=== PATIENT | female | born 1980 | race Hispanic/Latino ===

== ENCOUNTER 2017-02-05 11:28 | Inpatient (IN) | payer SELFPAY ==
[2017-02-05 12:21] LABS: Basophils % (Auto) 0.7 % (0.0-1.8); Hematocrit 43.6 % (30.3-42.9); Hemoglobin 14.5 gm/dl (10.1-14.3); Mean Corpuscular HGB Conc 33 % (30-34); Mean Corpuscular Hemoglobin 31 pg (28-32); Mean Corpuscular Volume 94 fl (79-97); Platelet Count 375 K/mm3 (140-440); Red Blood Count 4.66 M/mm3 (3.65-5.03); Red Cell Distribution Width 12.9 % (13.2-15.2); White Blood Count 7.7 K/mm3 (4.5-11.0)
[2017-02-05 12:28] LABS: Anion Gap 21 mmol/L; Blood Urea Nitrogen 7 mg/dL (7-17); Calcium 9.4 mg/dL (8.4-10.2); Carbon Dioxide 24 mmol/L (22-30); Chloride 100.2 mmol/L (98-107); Glucose 102 mg/dL (65-100); Potassium 3.9 mmol/L (3.6-5.0); Sodium 141 mmol/L (137-145)
[2017-02-05] MEDS ORDERED: NITRO-BID 2% TP ONE (17:15)
[2017-02-05] MEDS ORDERED: ASPIRIN PO ONE (17:15)
--- NOTE | 2017-02-05 17:20 | Emergency Department Report ---
HPI - General Chief Complaint: Chest Pain Time Seen by Provider: 02/05/17 17:08 - HPI HPI: Room 38 The patient is a 36-year-old female presenting with a chief complaint of chest pain. Patient states last night she developed substernal chest pressure that has been intermittent. The patient states pressure sometimes associated with shortness of breath as well as diaphoresis. Patient denies nausea or vomiting. The patient currently did not does not have chest pain but states she did have pressure approximately 10 minutes ago. Patient states she's never had a stress test or cardiac catheterization Location: Chest Duration: Intermittent Since yesterday Quality: Pressure Severity: Currently 0/10 Modifying factors: [see above] Context: [see above] Mode of transportation: Unknown ED Past Medical Hx - Past Medical History Hx Headaches / Migraines: Yes Hx Seizures: Yes (anxiety induced) Hx Psychiatric Treatment: Yes (anxiety/depression/OCD) Additional medical history: hypothyroidism. TACHYCARDIA - Surgical History Additional Surgical History: - Family History Family history: no significant - Social History Smoking Status: Never Smoker Substance Use Type: None (denies illicit drug use), Alcohol (occasional) - Medications Home Medications: Home Medications Medication Instructions Recorded Confirmed Last Taken Type Bupropion HCl [Wellbutrin XL] 300 mg PO DAILY 09/08/14 09/08/14 09/08/14 History Levothyroxine [Synthroid] 25 mcg PO DAILY 09/08/14 09/08/14 09/08/14 History Temazepam [Restoril] 30 mg PO QHS PRN 09/08/14 09/08/14 09/07/14 History Venlafaxine Xr [Effexor XR] 225 mg PO DAILY 09/08/14 09/08/14 09/08/14 History busPIRone [Buspar] 20 mg PO TID 09/08/14 09/08/14 09/08/14 History clonazePAM [KlonoPIN] 2 mg PO DAILY 09/08/14 09/08/14 09/08/14 History ED Review of Systems ROS: Stated complaint: CHEST PAIN Other details as noted in HPI Comment: All other systems reviewed and negative Constitutional: diaphoresis Eyes: denies: eye pain, eye discharge, vision change ENT: denies: ear pain, throat pain Respiratory: shortness of breath Cardiovascular: chest pain, palpitations Endocrine: no symptoms reported Gastrointestinal: denies: nausea, vomiting Genitourinary: denies: urgency, dysuria, discharge Musculoskeletal: denies: back pain, joint swelling, arthralgia Skin: denies: rash, lesions Neurological: denies: headache, weakness, paresthesias Psychiatric: anxiety (?) Hematological/Lymphatic: denies: easy bleeding, easy bruising Physical Exam - Physical Exam Vital Signs: Vital Signs 02/05/17 02/05/17 11:35 15:57 Temperature 98.2 F Pulse Rate 90 95 H Respiratory 17 16 Rate Blood Pressure 125/82 Blood Pressure 137/66 [Right] O2 Sat by Pulse 100 100 Oximetry Physical Exam: GENERAL: The patient is well-developed well-nourished female lying on stretcher not appearing to be in acute distress. [] HEENT: Normocephalic. Atraumatic. Extraocular motions are intact. Patient has moist mucous membranes. NECK: Supple. Trachea midline CHEST/LUNGS: Clear to auscultation. There is no respiratory distress noted. HEART/CARDIOVASCULAR: Regular. There is no tachycardia. There is no gallop rub or murmur. ABDOMEN: Abdomen is soft, nontender. Patient has normal bowel sounds. There is no abdominal distention. SKIN: There is no rash. There is no edema. There is no diaphoresis. NEURO: The patient is awake, alert, and oriented. The patient is cooperative. The patient has normal speech. MUSCULOSKELETAL: There is no evidence of acute injury. ED Course Vital Signs 02/05/17 02/05/17 11:35 15:57 Temperature 98.2 F Pulse Rate 90 95 H Respiratory 17 16 Rate Blood Pressure 125/82 Blood Pressure 137/66 [Right] O2 Sat by Pulse 100 100 Oximetry ED Medical Decision Making - Lab Data Result diagrams: 02/05/17 11:48 02/05/17 11:48 Laboratory Tests 02/05/17 02/05/17 02/05/17 11:48 11:48 14:30 WBC 7.7 RBC 4.66 Hgb 14.5 H Hct 43.6 H MCV 94 MCH 31 MCHC 33 RDW 12.9 L Plt Count 375 Lymph % (Auto) 26.9 [place] % (Auto) 9.8 H Eos % (Auto) 0.0 Baso % (Auto) 0.7 Lymph # 2.1 [place] # 0.8 Eos # 0.0 Baso # 0.1 Seg Neutrophils % 62.6 Seg Neutrophils # 4.8 Sodium 141 Potassium 3.9 Chloride 100.2 Carbon Dioxide 24 Anion Gap 21 BUN 7 Creatinine 0.7 Estimated GFR > 60 BUN/Creatinine Ratio 10.00 Glucose 102 H Calcium 9.4 Troponin T < 0.010 < 0.010 - EKG Data -: EKG Interpreted by Me EKG shows normal: sinus rhythm Rate: normal - EKG Data When compared to previous EKG there are: changes noted Interpretation: nonspecific ST-T wave stevie (T-wave inversion in lead V2) - Radiology Data Radiology results: image reviewed (chest x-ray) interpreted by me: Chest x-ray-no focal infiltrates, no pneumothorax - Differential Diagnosis ACS, anxiety, pericarditis, GERD Critical care attestation.: If time is entered above; I have spent that time in minutes in the direct care of this critically ill patient, excluding procedure time. ED Disposition Clinical Impression: Chest pain Disposition: OP ADMITTED IP TO THIS HOSP Is pt being admited?: Yes Does the pt Need Aspirin: Yes Condition: Fair Instructions: Chest Pain (ED) Referrals: PRIMARY CARE, [Primary Care Provider] - 3-5 Days Time of Disposition: 18:01 (hospitalist paged)
[2017-02-05] MEDS ORDERED: ZOFRAN IV PRN (17:21)
[2017-02-05] MEDS ORDERED: MORPHINE IV PRN (17:21)
[2017-02-05] MEDS ORDERED: SODIUM CHLORIDE FLUSH SYRINGE 10 ML IV PRN (19:15)
[2017-02-05] MEDS ORDERED: TYLENOL PO PRN (19:18)
--- NOTE | 2017-02-05 19:21 | History and Physical Report ---
History of Present Illness Date of examination: 02/05/17 Chief complaint: chest pain History of present illness: 36-year-old female presented to the emergency department complaining of left-sided chest discomfort that started yesterday. When started it was 10 out of 10 now 3 out of 10, feels as if somebody sitting on her chest, worsened with movement, getting better by sitting still, no radiation. Admitted for diaphoresis but denied shortness of breath. Patient has history of reflux, tachycardia and was on hold monitor which only shows sinus tachycardia, anxiety disorder, depression, migraine. REVIEW OF SYSTEMS: GENERAL: no weight change, no fatigue, no fever HEAD: no head ache EYES: no blurry vision, no acute visual loss EARS: no hearing loss, no discharge, no earache NOSE: no stuffiness, no sneezing, no discharge MOUTH, THROAT AND NECK: no bleeding gums, no sore throat, no swollen neck CARDIAC: +palpitations, no dyspnea on exertion, no orthopnea, no PND, no edema, +chest pain RESPIRATORY: no shortness of breath, no wheeze, no cough, no sputum, no hemoptysis, no asthma GI: no decreased appetite, no nausea, no vomiting, no dysphagia, no diarrhea, no constipation, no abdominal pain URINARY: no change in frequency, no urgency, no polyuria, no hematuria, no incontinence MUSCULOSKELETAL: no muscle weakness, no pain, no joint stiffness NEUROLOGIC: no loss of sensation/numbness, no tingling, no tremors, no weakness/ paralysis HEMATOLOGIC: no anemia, no easy bruising SKIN: no rashes ENDOCRINE: no heat/cold intolerance, no polyuria, no polydipsia, no thyroid problems, no diabetes PSYCHIATRIC: +anxiety, +depression, no suicidal ideations Past History Past Medical History: GERD, migraines, seizures Past Surgical History: Social history: full code. denies: smoking, alcohol abuse, prescription drug abuse, IV drug use Family history: no significant family history Medications and Allergies Allergies Allergy/AdvReac Type Severity Reaction Status Date / Time Penicillins Allergy Hives Verified 02/05/17 11:38 sulfamethoxazole Allergy Seizure Verified 02/05/17 11:38 [From Bactrim] trimethoprim [From Bactrim] Allergy Seizure Verified 02/05/17 11:38 Home Medications Medication Instructions Recorded Confirmed Last Taken Type clonazePAM [KlonoPIN] 2 mg PO BID 09/08/14 02/05/17 02/05/17 History Ibuprofen [Motrin 200 MG tab] 200 mg PO PRN 02/05/17 02/05/17 Unknown History Levothyroxine [Synthroid] 50 mcg PO BID 02/05/17 02/05/17 02/05/17 History Paroxetine HCl [Paxil] 60 mg PO QDAY 02/05/17 02/05/17 Unknown History Zolpidem [Ambien] 5 mg PO QHS 02/05/17 02/05/17 Unknown History Active Meds: Active Medications Aspirin (Baby Aspirin) 81 mg PO QDAY ONI Clonazepam (Klonopin) 2 mg PO BID ONI Enoxaparin Sodium (Lovenox) 40 mg SUB-Q QDAY ONI Famotidine (Pepcid) 20 mg PO BID ONI Levothyroxine Sodium (Synthroid) 50 mcg PO BID ONI Miscellaneous Medication (Paroxetine Hcl [Paxil]) 60 mg PO QDAY [facility] Morphine Sulfate (Morphine) 6 mg IV ONCE PRN PRN Reason: Pain Ondansetron HCl (Zofran) 8 mg IV ONCE PRN PRN Reason: Nausea Sodium Chloride (Sodium Chloride Flush Syringe 10 Ml) 10 ml IV PRN PRN PRN Reason: LINE FLUSH Zolpidem Tartrate (Ambien) 5 mg PO QHS [facility] Exam - Physical Exam Narrative exam: Not in cardiopulmonary distress. The patient appeared well nourished and normally developed. Vital signs as documented. Head exam is unremarkable. No scleral icterus . Neck is without jugular venous distension, thyromegaly, or carotid bruits. Lungs are clear to auscultation. Cardiac exam reveals regular rate and Rhythm. First and second heart sounds normal. No murmurs, rubs or gallops. Abdominal exam reveals normal bowel sounds, no masses, no organomegaly and no aortic enlargement. Extremities are nonedematous and both femoral and pedal pulses are normal. [employer]: Alert and oriented 3. No focal weakness. - Constitutional Vitals: Temp Pulse Resp BP Pulse Ox 98.2 F 82 16 133/66 100 02/05/17 11:35 02/05/17 17:24 02/05/17 15:57 02/05/17 17:24 02/05/17 15:57 Results - Labs CBC & Chem 7: 02/05/17 11:48 02/05/17 11:48 Labs: Laboratory Last Values WBC 7.7 K/mm3 (4.5-11.0) 02/05/17 11:48 RBC 4.66 M/mm3 (3.65-5.03) 02/05/17 11:48 Hgb 14.5 gm/dl (10.1-14.3) H 02/05/17 11:48 Hct 43.6 % (30.3-42.9) H 02/05/17 11:48 MCV 94 fl (79-97) 02/05/17 11:48 MCH 31 pg (28-32) 02/05/17 11:48 MCHC 33 % (30-34) 02/05/17 11:48 RDW 12.9 % (13.2-15.2) L 02/05/17 11:48 Plt Count 375 K/mm3 (140-440) 02/05/17 11:48 Lymph % (Auto) 26.9 % (13.4-35.0) 02/05/17 11:48 [place] % (Auto) 9.8 % (0.0-7.3) H 02/05/17 11:48 Eos % (Auto) 0.0 % (0.0-4.3) 02/05/17 11:48 Baso % (Auto) 0.7 % (0.0-1.8) 02/05/17 11:48 Lymph # 2.1 K/mm3 (1.2-5.4) 02/05/17 11:48 [place] # 0.8 K/mm3 (0.0-0.8) 02/05/17 11:48 Eos # 0.0 K/mm3 (0.0-0.4) 02/05/17 11:48 Baso # 0.1 K/mm3 (0.0-0.1) 02/05/17 11:48 Seg Neutrophils % 62.6 % (40.0-70.0) 02/05/17 11:48 Seg Neutrophils # 4.8 K/mm3 (1.8-7.7) 02/05/17 11:48 Sodium 141 mmol/L (137-145) 02/05/17 11:48 Potassium 3.9 mmol/L (3.6-5.0) 02/05/17 11:48 Chloride 100.2 mmol/L (98-107) 02/05/17 11:48 Carbon Dioxide 24 mmol/L (22-30) 02/05/17 11:48 Anion Gap 21 mmol/L 02/05/17 11:48 BUN 7 mg/dL (7-17) 02/05/17 11:48 Creatinine 0.7 mg/dL (0.7-1.2) 02/05/17 11:48 Estimated GFR > 60 ml/min 02/05/17 11:48 BUN/Creatinine Ratio 10.00 % 02/05/17 11:48 Glucose 102 mg/dL (65-100) H 02/05/17 11:48 Calcium 9.4 mg/dL (8.4-10.2) 02/05/17 11:48 Troponin T < 0.010 ng/mL (0.00-0.029) 02/05/17 18:40 - Imaging and Cardiology EKG: image reviewed (sinus tach) Assessment and Plan Assessment and plan: Chest pain Anxiety depression Hypothyroidism GERD - Admit to telemetry floor and managed according to chest pain protocol - Nitropatch - Aspirin - We'll resume her home medications - We'll have stress test tomorrow DVT prophylaxis - Lovenox Disposition - Admit to telemetry floor Advance Directives: Yes VTE prophylaxis?: Chemical Plan of care discussed with patient/family: Yes
[2017-02-05] MEDS: SYNTHROID PO SCH (23:20)
[2017-02-05] MEDS: PEPCID PO SCH (23:21)
[2017-02-05] MEDS: AMBIEN PO SCH ×2 (23:21→23:22)
[2017-02-05 23:45] LABS: Creatine Kinase 36 units/L (30-135)
[2017-02-05 23:50] LABS: Creatine Kinase MB < 1.0 ng/mL (0.0-4.0)
[2017-02-06 02:44] LABS: Creatine Kinase 34 units/L (30-135)
[2017-02-06 02:49] LABS: Creatine Kinase MB < 1.0 ng/mL (0.0-4.0)
--- NOTE | 2017-02-06 07:33 | XRay Report ---
Single view chest: History: Chest pain. Findings Normal cardiomediastinal silhouette. Trachea is midline. No consolidation, pneumothorax or pleural effusion. Impression: No acute cardiopulmonary findings.
--- NOTE | 2017-02-06 08:33 | Discharge Summary ---
Providers - Providers Date of Admission: 02/05/17 19:14 Date of discharge: 02/06/17 Attending physician: DAPHNE BROWN MD 02/05/17 Consult to Cardiac Rehabilitation [CONS] Routine Reason For Exam: Phase I Primary care physician: CARE NAVIGATOR Hospitalization Reason for admission: chest pain Condition: Stable Hospital course: 36-year-old female presented to the emergency department complaining of left-sided chest discomfort that started yesterday. When started it was 10 out of 10 now 3 out of 10, feels as if somebody sitting on her chest, worsened with movement, getting better by sitting still, no radiation. Admitted for diaphoresis but denied shortness of breath. Patient has history of reflux, tachycardia and was on hold monitor which only shows sinus tachycardia, anxiety disorder, depression, migraine. Impression persisted to have a stress test that was unremarkable. The chest pain resolved while she was in house. She is clinically stable at this time to discharge she is to follow with her primary care physician. Discharge diagnosis Chest pain-costochondritis Anxiety depression Hypothyroidism GERD Disposition: DISCHARGED TO HOME OR SELFCARE Time spent for discharge: 35 mins Core Measure Documentation - Palliative Care Palliative Care/ Comfort Measures: Not Applicable - Core Measures Any of the following diagnoses?: none - VTE Discharge Requirements Deep Vein Thrombosis/Pulmonary Embolism Present on Admission: No Exam - Physical Exam Narrative exam: VITAL SIGNS: Reviewed. GENERAL: The patient appeared well nourished and normally developed. Vital signs as documented. HEAD: No signs of head trauma. EYES: Pupils are equal. Extraocular motions intact. EARS: Hearing grossly intact. MOUTH: Oropharynx is normal. NECK: No adenopathy, no JVD. CHEST: Chest with clear breath sounds bilaterally. No wheezes, rales, or rhonchi. CARDIAC: Regular rate and rhythm. S1 and S2, without murmurs, gallops, or rubs. VASCULAR: No Edema. Peripheral pulses normal and equal in all extremities. ABDOMEN: Soft, without detectable tenderness. No sign of distention. No rebound or guarding, and no masses palpated. Bowel Sounds normal. MUSCULOSKELETAL: Good range of motion of all major joints. Extremities without clubbing, cyanosis or edema. NEUROLOGIC EXAM: Alert and oriented x 3. No focal sensory or strength deficits. Speech normal. Follows commands. PSYCHIATRIC: Mood normal. SKIN: No rash or lesions. - Constitutional Vitals: Temp Pulse Resp BP Pulse Ox 98.8 F 118 H 18 122/65 100 02/06/17 05:11 02/06/17 05:11 02/06/17 05:11 02/06/17 05:11 02/06/17 05:11 Plan Activity: advance as tolerated, fall precautions Diet: low fat Special Instructions: smoking cessation Follow up with: PRIMARY CARE, [Primary Care Provider] - 3-5 Days
--- NOTE | 2017-02-06 08:42 | Admit Criteria Form ---
Admission Criteria Documentation: CARDIOLOGY GRG Clinical Indications for Admission to Inpatient Care ( Place 'X' for any and all applicable criteria): Hospital admission is needed for appropriate care of the patient because of ANY ONE of the following (1): [ ] I. Hemodynamic instability as indicated by ALL of the following (1)(2)(3) (4)(5) [ ]a) Vital signs or other findings not as expected for chronic patient condition or baseline [ ]b) Instability indicated by ANY ONE of the following: [ ]i) Hypotension [ ]ii) Symptomatic Tachycardia unresponsive to treatment ( e.g., analgesia, fluids, sedation as indicated) [ ]iii) Inadequate perfusion indicated by ANY ONE of the following: [ ] 1) Lactic acidosis (> 2 mmol/L) [ ] 2) New abnormal capillary refill (> 3 seconds) [ ] 3) Reduced urine output [ ] 4) New altered mental status [ ]iv) Orthostatic vital sign changes unresponsive to treatment (e.g., fluids) [ ]v) IV inotropic or vasopressor medication required to maintain adequate blood pressure or perfusion [ ] II. Severe heart failure as indicated by ANY ONE of the following(17)(18) [ ]a) Respiratory distress [ ]b) Hypotension [ ]c) Anasarca (refractory to outpatient therapy) [ ]d) Cardiac arrhythmias of immediate concern [ ]e) Myocardial ischemia [ ] III. Cardiac arrhythmias or findings of immediate concern indicated by ANY ONE of the following (19)(20): [ ] a) Heart rhythms that are inherently dangerous or unstable indicated by ANY ONE of the following (21)(22)(23): [ ] i) Resuscitated ventricular fibrillation or cardiac arrest [ ] ii) Ventricular escape rhythm [ ] iii) Sustained ventricular tachycardia (30 seconds or more of ventricular rhythm at greater than 100 beats per minute) [ ] iv) Nonsustained ventricular tachycardia and ANY ONE of the following: [ ] 1) Suspected cardiac ischemia as cause or consequence of ventricular tachycardia [ ] 2) In setting of acute myocarditis [ ] b) Unstable cardiac conduction defects indicated by ANY ONE of the following(23)(24)(25) [ ] i) Type II second-degree atrioventricular block [ ]ii) Third-degree atrioventricular block [ ]iii) New-onset left bundle branch block with suspected myocardial ischemia [ ]c) Any heart rhythm and ANY ONE of the following (21)(22)(26)(27) (28) [ ] i) Continuous long-term ECG monitoring needed (e.g., initiation of drug requiring monitoring for more than 24 hours) [ ] ii) Patient has automatic implanted cardioverter defibrillator that is repeatedly firing, malfunctioning, or in need of immediate adjustment of settings beyond the scope of ambulatory or observation care [ ]d) Heart rhythms of concern due to ANY ONE of the following: [ ] i) Hypotension [ ] ii) Respiratory distress [ ] iii) Association with other significant symptoms (e.g., bradycardia with syncope or ongoing dizziness, supraventricular tachycardia with chest pain (14)(15)(17) [ ] IV. Monitoring for cardiac contusion beyond the scope of observation care needed [A](30)(31)(32) [ ] V. Surgical or device complication (e.g., valve replacement complication , pacemaker dysfunction) (35)(41)(44)(45)(46) [ ] . Inpatient palliative care needed. [B](49) Also use Inpatient Palliative Care Criteria [ ] VII. Nonbacterial thrombotic (marantic) endocarditis (36)(43)(47)(48) [X] VIII. Cardiology condition, symptom, or finding for which emergency and observation care has failed or are not considered appropriate. [ ] IX. Acute valvular disease requiring inpatient as indicated by ANY ONE of the following (41) [ ]a) Acute valvular regurgitation (42) [ ]b) Noninfectious valvulitis (43) [ ]c) Obstructive valve thrombosis [ ]d) Paravalvular leak [ ]e) Other significant valvular disorder remaining after emergency or observation level of care (as appropriate) [ ]X. Pericardial disease requiring inpatient treatment as indicated by ANY ONE of the following (33)(34)(35)(36)(37) [ ]a) Suspected tamponade (38)(39)(40) [ ]b) Hemopericardium [ ]c) Other significant pericardial disorder remaining after emergency or observation level of care (as appropriate) [ ] XI. Cardiac ischemia beyond scope of emergency and observation care. [ ] XII. Hypertension requiring inpatient treatment as indicated by ANY ONE of the following (6)(7)(8) [ ]a) SBP greater than 220 mm Hg or DBP greater than 120 mmHg despite treatment [ ]b) SBP greater than 140 mm Hg or DBP greater than 100 mm Hg with evidence of acute end organ damage as indicated by ANY ONE of the following [ ] i) Altered mental status [ ] ii) Acute renal failure as indicated by new onset of ANY ONE of the following (9)(10)(11)(12)(13) [ ]1) 3-fold rise in serum creatinine from baseline [ ]2) Serum creatinine greater than 4 mg/dL ( 354 micromoles/L) with acute rise greater than 0.5 mg/dL (44.2 micromoles/L) [ ]3) Reduction of more than 75% in estimated glomerular filtration rate from baseline [ ]4) Estimated glomerular filtration rate less than 35 mL/min/1.73m2 (0.59 mL/sec/1.73m2) in child up to 18 years of age [ ]5) Cessation of urine output indicated by ALL of the following [ ]A. Adequate volume status [ ]B. Inadequate urine output as indicated by ANY ONE of the following [ ]a. Urine output less than 0.3 mL/kg/hr for 24 hours [ ]b. Anuria (urine output less than 0.1 mL/kg/hr) for 12 hours [ ] iii) Aortic dissection [ ] iv) Myocardial Ischemia [ ] v) Left ventricular heart failure [ ]vi) Retinal Hemorrhage [ ]vii) Other significant finding [ ]c) Hypertension in child requiring inpatient treatment as indicated by ALL of the following(14)(15)(16) [ ] i) Outpatient treatment not effective, not available, or not appropriate [ ]ii) SBP or DBP greater than 95th percentile for age [ ]iii) Evidence of acute end organ damage as indicated by ANY ONE of the following [ ]1) Altered mental status [ ]2) Acute renal failure as indicated by new onset of ANY ONE of the following(9)(10)(11)(12)(13) [ ]A. 3-fold rise in serum creatinine from baseline [ ]B. Serum creatinine greater than 4 mg/dL (354 micromoles/L) with acute rise greater than 0.5 mg/dL (44.2 micromoles/L) [ ]C. Reduction of more than 75% in estimated glomerular filtration rate from baseline [ ]D. Estimated glomerular filtration rate less than 35 mL/min/1.73m2 (0.59 mL/sec/1.73m2) in child up to 18 years of age [ ]E. Cessation of urine output indicated by ALL of the following [ ]a. Adequate volume status [ ]b. Inadequate urine output as indicated by ANY ONE of the following [ ]i) Urine output less than 0.3 mL/kg/hr for 24 hours [ ]ii) Anuria ( urine output less than 0.1 mL/kg/hr) for 12 hours [ ]3) Severe headache [ ]4) Visual disturbance [ ]5) Retinal hemorrhage [ ]6) Other significant finding [ ]XIII. Complications of transplanted heart indicated by ANY ONE of the following(61): [ ]a) Acute graft rejection requiring inpatient management (eg, intravenous immunosuppression)(62)(63) [ ]b) Acute graft heart failure indicated by ANY ONE of the following(64): [ ]i) Hemodynamic instability [ ]ii) Cardiac arrhythmias of immediate concern [ ]iii) Pulmonary edema that is very severe (eg, mechanical ventilation needed, imminent or likely, need for 100% oxygen to keep oxygen saturation above 90%) [ ]iv) Pulmonary edema that is persistent as indicated by ALL of the following: [ ]1) New need for oxygen therapy to keep oxygen saturation above 90% (or increased FiO2 need from baseline) [ ]2) Has not improved sufficiently with emergency department or observation care IV diuretics or other heart failure treatments[E] [ ]v) Altered mental status that is severe or persistent [ ]vi) Increased creatinine (new on laboratory test) with reduction of more than 50% in estimated glomerular filtration rate from baseline [ ]vii) Progressively (ongoing) rising creatinine (known from past laboratory test) with reduction of more than 25% in estimated glomerular filtration rate from baseline [ ]viii) Acute renal failure [ ]ix) Acute peripheral ischemia (eg, examination shows pulseless, cool, mottled, or cyanotic extremity) [ ]x) Pulmonary artery catheter monitoring needed [ ]xi) Other sign or symptom of heart failure requiring inpatient treatment (ie, too severe or not responsive to outpatient and observation care treatment) [ ]c) Infection requiring inpatient management (eg, Hemodynamic instability, need for intravenous antimicrobial treatment)(66)(67)(68)(69)(70) [ ]d) Cardiac allograft vasculopathy requiring inpatient management ( eg evidence of cardiac ischemia)(71) [ ]e) Other complication of transplanted heart (eg, stroke, severe pulmonary hypertension, severe valvular dysfunction) requiring inpatient management(72) The original [facility] content created by [facility] has been revised. The portions of the content which have been revised are identified through the use of italic text or in bold, and [facility] has neither reviewed nor approved the modified material. All other unmodified content is copyright [facility]. Please see references footnoted in the original [facility] edition 2016 Admission Criteria Met: Yes
[2017-02-06] MEDS ORDERED: LEXISCAN IV ONE ×2 (09:28→09:29)
[2017-02-06] MEDS ORDERED: BABY ASPIRIN PO SCH (10:00)
[2017-02-06] MEDS ORDERED: PAROXETINE HCL 60 MG PO SCH (10:00)
[2017-02-06] MEDS ORDERED: PAXIL PO SCH (10:00)
[2017-02-06] MEDS ORDERED: LOVENOX SUB-Q SCH (10:00)
[2017-02-06] MEDS: SYNTHROID PO SCH (11:09)
[2017-02-06] MEDS: PEPCID PO SCH (11:10)
[2017-02-06 12:04] VITALS: BP 147/65
--- NOTE | 2017-02-06 13:03 | Treadmill Report ---
NUCLEAR STRESS TEST DESCRIPTION OF PROCEDURE: The patient is brought to the Cardiology lab and a Lexiscan stress test is performed. The patient tolerated the procedure well. Post-stress images reveal homogeneous distribution of the isotope with no significant reversible defects noted. Accompanying gated study shows good systolic function with no wall motion abnormalities. Calculated ejection fraction is 68%. IMPRESSION: 1. Dual isotope study is negative for ischemia. 2. Good left ventricular systolic function with no wall motion abnormalities. Ejection fraction is calculated to be 68%. 3. Suggest clinical correlation. JOB# [id number] KBM/NTS
== END 2017-02-06 12:11 | disposition home or self-care (01) | DRG 206 ==
LOC: ED 11:28 → 4A 19:14
PROVIDERS: ADMIT Internal Medicine; ATTEND Internal Medicine
DX: M94.0 Chondrocostal junction syndrome [Tietze] (principal); F41.9 Anxiety disorder, unspecified; G43.909 Migraine, unspecified, not intractable, without status migrainosus; F32.9 Major depressive disorder, single episode, unspecified; E03.9 Hypothyroidism, unspecified; K21.9 Gastro-esophageal reflux disease without esophagitis; Z88.0 Allergy status to penicillin; Z88.2 Allergy status to sulfonamides; Z88.8 Allergy status to other drugs, medicaments and biological substances
CPT/HCPCS: 36415; 71010; 78452; 80048; 80061; 82550; 82553; 84484; 84703; 85025; 93005; 93010; 93017; A9502; J1650; J2270; J2785

== ENCOUNTER 2017-10-20 00:44 | Emergency (ER) | payer SELFPAY ==
[2017-10-20] MEDS ORDERED: FLEXERIL PO ONE (08:09)
[2017-10-20] MEDS ORDERED: TORADOL IM ONE (08:09)
--- NOTE | 2017-10-20 08:31 | Emergency Department Report ---
HPI - General Chief Complaint: Back Pain/Injury Time Seen by Provider: 10/20/17 07:51 - HPI HPI: Patient is a 37-year-old female who presents to ED complaining of lower back pain and buttock pain. Radiates down the right thigh. Patient states the pain began about 3 days ago. Patient states she was lifting some heavy furniture in her bedroom and also at work she spinning cleaning and doing some heavy lifting. Patient states that she feels a pressure aching-type pain in her lower back. Patient also states that she uses the throat pain aching and sharp pain in her right buttock that radiates down to her right thigh. Patient states she did not sustain any fall or injuries. She denies fever/chills/nausea vomiting or problems. ED Past Medical Hx - Past Medical History Hx Hypertension: Yes Hx Congestive Heart Failure: No Hx Diabetes: No Hx Headaches / Migraines: Yes Hx Seizures: Yes (anxiety induced) Hx Psychiatric Treatment: Yes (anxiety/depression/OCD) Hx Asthma: No Hx COPD: No Additional medical history: hypothyroidism. TACHYCARDIA - Surgical History Additional Surgical History: - Social History Smoking Status: Never Smoker Substance Use Type: None - Medications Home Medications: Home Medications Medication Instructions Recorded Confirmed Last Taken Type clonazePAM [KlonoPIN] 2 mg PO BID 09/08/14 02/05/17 02/05/17 History Ibuprofen [Motrin 200 MG tab] 200 mg PO PRN 02/05/17 02/05/17 Unknown History Levothyroxine [Synthroid] 50 mcg PO BID 02/05/17 02/05/17 02/05/17 History Paroxetine HCl [Paxil] 60 mg PO QDAY 02/05/17 02/05/17 Unknown History Zolpidem [Ambien] 5 mg PO QHS 02/05/17 02/05/17 Unknown History Cyclobenzaprine [Flexeril 10 MG 10 mg PO QHS #20 tablet 10/20/17 Unknown Rx TAB] Diclofenac Potassium 50 mg PO BID #30 tablet 10/20/17 Unknown Rx ED Review of Systems ROS: Stated complaint: VOMITING /ABD PAIN Other details as noted in HPI Constitutional: denies: chills, fever Eyes: denies: eye pain, eye discharge, vision change ENT: denies: ear pain, throat pain Respiratory: denies: cough, shortness of breath, wheezing Cardiovascular: denies: chest pain, palpitations Endocrine: no symptoms reported Gastrointestinal: denies: abdominal pain, nausea, diarrhea Genitourinary: denies: urgency, dysuria, discharge Musculoskeletal: denies: back pain, joint swelling, arthralgia Skin: denies: rash, lesions Neurological: denies: headache, weakness, paresthesias Psychiatric: denies: anxiety, depression Hematological/Lymphatic: denies: easy bleeding, easy bruising Physical Exam - Physical Exam Vital Signs: Vital Signs 10/20/17 02:52 Temperature 98.2 F Pulse Rate 98 H Respiratory 18 Rate Blood Pressure 96/52 O2 Sat by Pulse 98 Oximetry Physical Exam: GENERAL: Alert and oriented x3, no apparent distress, Normal Gait, atraumatic. NECK: Supple. Non edematous, No carotid bruits. No lymphadenopathy or thyromegaly. No C-spine tenderness LUNGS: Symetrical with respiration, No wheezing, no rales or crackles, CTAB. HEART: S1, S2 present, regular rate and rhythm without murmur, no rubs, no gallops. Non tender to palpation. ABDOMEN: No organomegaly was noted,Positive bowel sounds, soft, and non- distended. . Nontender to palpation on all Quadrants, BACK: Full range of motion, no spinal tenderness, tender to palpation of the latisimus dorsi muscles, NO CVA tenderness. EXTREMITIES/MUSCULOSKELETAL: No cyanosis, clubbing, rash, lesions or edema. Full ROM bilaterally. UE/LE Pulses 2+ bilaterally. LE and UE 5+ strength bilaterally, straight leg raise negative bilaterally. NEUROLOGIC: The patient is cooperative with no focal neurologic deficits. Normal speech. Normal sensation in bilateral upper and lower extremities, No loss of sensation, SKIN: Warm and dry, No lesions, No ulceration or induration present. ED Course Vital Signs 10/20/17 02:52 Temperature 98.2 F Pulse Rate 98 H Respiratory 18 Rate Blood Pressure 96/52 O2 Sat by Pulse 98 Oximetry ED Medical Decision Making - Medical Decision Making 37-year-old female presents to ED with myalgia of the lower back muscles/ UTI ED course: Patient received Toradol and Flexeril in ED. Urinalysis positive for bacteria. I discussed findings with patient and discussed the patient should be minimal antibiotics and pain control. Vital signs are normal patient is in no acute distress Discussed with patient follow-up with primary care physician. Discussed the patient and take medications as prescribed. Patient has no neurological deficit. Patient is alert and oriented 3 and understands all instructions given. Discussed drowsiness effect of Flexeril makes her drowsy and not to operate machinery while taking flexeril Critical care attestation.: If time is entered above; I have spent that time in minutes in the direct care of this critically ill patient, excluding procedure time. ED Disposition Clinical Impression: Lumbar radiculopathy UTI (urinary tract infection) Qualifiers: Urinary tract infection type: acute cystitis Hematuria presence: without hematuria Qualified Code(s): N30.00 - Acute cystitis without hematuria Disposition: TO HOME OR SELFCARE Is pt being admited?: No Does the pt Need Aspirin: No Condition: Stable Instructions: Low Back Strain (ED), Trigger Point Pain (ED), Lumbar Radiculopathy (ED), Urinary Tract Infection in Women (ED), Dysuria (ED) Additional Instructions: Make sure to follow up with the primary care physician as discussed. Take all your medications as you've been prescribed. If you have any worsening symptoms or develop new symptoms please return to ED immediately. Prescriptions: Cyclobenzaprine [Flexeril 10 MG TAB] 10 mg PO QHS #20 tablet Diclofenac Potassium 50 mg PO BID #30 tablet Referrals: DANYELL JUNIOR MD [Primary Care Provider] - 3-5 Days [facility] [Outside] - 3-5 Days [facility] [Outside] - 3-5 Days [facility] [Outside] - 3-5 Days Forms: Work/School Release Form(ED) Time of Disposition: 09:32
[2017-10-20 09:23] VITALS: BP 102/51
[2017-10-20 09:27] LABS: Bacteria,Urine 4+ /HPF (Negative); Bilirubin,Urine NEG (Negative); Blood,Urine NEG (Negative); Color,Urine Yellow (Yellow); Nitrite,Urine NEG (Negative); Protein,Urine <15 mg/dL mg/dL (Negative); Urobilinogen,Urine < 2.0 mg/dL (<2.0)
== END 2017-10-20 09:40 | disposition home or self-care (01) ==
LOC: ED 00:44
DX: M54.16 Radiculopathy, lumbar region (principal); N30.00 Acute cystitis without hematuria; I10 Essential (primary) hypertension; G43.909 Migraine, unspecified, not intractable, without status migrainosus; F32.9 Major depressive disorder, single episode, unspecified; E03.9 Hypothyroidism, unspecified; F41.9 Anxiety disorder, unspecified; F42.9 Obsessive-compulsive disorder, unspecified; Z88.0 Allergy status to penicillin; Z88.2 Allergy status to sulfonamides
CPT/HCPCS: 81001; 96372; 99283; J1885